=== PATIENT | female | born 1945 | race Caucasian/White ===

== ENCOUNTER 2021-07-18 09:33 | Inpatient (IN) | payer MEDICARE, MEDICAID ==
[~2021-07-18] VITALS: Ht 162.6 cm; Wt 78.0 kg
--- NOTE | 2021-07-18 09:52 | NUR ---
BIB DAUGHTER FOR GENERALIZED WEAKNESS, N/V, DIZZINESS, FEVER, AND CP SINCE 0800 LAST NIGHT. NEAR SYNCOPE WHILE IN THE WAITING ROOM. HC BREAST CANCER AND R SIDED MASTECTOMY. RECEIVED RADIATION THERAPY, STATES CP IS AROUND SITE OF RADIATION. AAOX4, BREATHING EVEN AND UNLABORED, [employer]IONICS ELECTRONICS TECHNICIAN STRENGTH 5/5, NO LEG OR ARM DRIFT. NO FACIAL DROOP. ON MONITOR, BP 126/84. TEMP 100.0 F.
--- NOTE | 2021-07-18 10:35 | NUR ---
LAB AT BEDSIDE
[2021-07-18 10:52] LABS: BASOPHILS % (AUTO) 0.2 % (0.0-2.0); EOSINOPHILS % (AUTO) 0.4 % (0.0-6.0); HEMATOCRIT 33 % (33-45); HEMOGLOBIN 11.2 g/dL (11.5-14.8); LYMPHOCYTES # (AUTO) 0.7 K/uL (0.8-4.8); LYMPHOCYTES % (AUTO) 20.5 % (20.0-44.0); MEAN CORPUSCULAR HGB CONC 34 g/dl (31.0-36.0); MEAN CORPUSCULAR VOLUME 90 fL (82-100); MONOCYTES # (AUTO) 0.4 K/uL (0.1-1.30); MONOCYTES % (AUTO) 11.9 % (2.0-12.0); NEUTROPHILS # (AUTO) 2.4 K/uL (1.8-8.9); RED BLOOD CELL COUNT(AUTO) 3.63 MIL/uL (4.0-5.2); WHITE BLOOD COUNT (AUTO) 3.6 K/uL (4.3-11.0)
[2021-07-18] MEDS ORDERED: IV NS 0.9% 1,000 ML BAG IV ONE (11:30)
[2021-07-18] MEDS ORDERED: VANCOMYCIN 1.5 GM in IV D5W 500 ML IV SCH (11:30)
--- NOTE | 2021-07-18 11:30 | NUR ---
URINE SAMPLE OBTAINED AND SENT TO LAB
--- NOTE | 2021-07-18 11:38 | NUR ---
LAB AT BEDSIDE. BLOOD CULTURES OBTAINED
[2021-07-18 12:01] LABS: BILIRUBIN,URINE NEGATIVE (NEGATIVE); COLOR,URINE YELLOW (YELLOW); LEUKOCYTE ESTERASE ,URINE NEGATIVE (NEGATIVE); NITRITE, URINE NEGATIVE (NEGATIVE); PROTEIN,URINE NEGATIVE (NEGATIVE); UGLUCOSE NEGATIVE (NEGATIVE); UROBILINOGEN,URINE 0.2 EU/dL (0.2)
[2021-07-18 12:02] LABS: CALCIUM, SERUM 8.8 mg/dL (8.5-10.1); CARBON DIOXIDE 22 mmol/L (21-32); CHLORIDE 99 mmol/L (98-107); CREATININE 1.3 mg/dL (0.6-1.3); GLUCOSE 120 mg/dL (74-106); POTASSIUM 3.4 mmol/L (3.5-5.1); SODIUM SERUM 132 mmol/L (136-145); UREA NITROGEN, BLOOD 22 mg/dL (7-18)
[2021-07-18 12:06] LABS: ALANINE AMINOTRANSFERASE 21 U/L (12-78); ALBUMIN 3.1 g/dL (3.4-5.0); ALKALINE PHOSPHATASE 39 U/L (46-116); ASPARTATE AMINOTRANSFERASE 19 U/L (15-37); BILIRUBIN,DIRECT 0.3 mg/dL (0.0-0.2); BILIRUBIN,TOTAL 1.1 mg/dL (0.2-1.0); TOTAL PROTEIN, SERUM 6.3 g/dL (6.4-8.2)
[2021-07-18 12:10] LABS: PLATELET COUNT (AUTO) 101 K/uL (150-450)
[2021-07-18] MEDS ORDERED: IOHEXOL-350 100 ML VIAL IV ONE (12:12)
[2021-07-18] MEDS ORDERED: IV NS 0.9% 250 ML IV ONE (12:13)
[2021-07-18 12:15] LABS: BAND % (MANUAL) 5 % (0.0-5.0); LYMPHOCYTES % (MANUAL) 24 % (16-48); MONOCYTES % (MANUAL) 9 % (0-11.0); NEUTROPHILS % (MANUAL) 62 (42-76)
[2021-07-18 12:35] LABS: BACTERIA,URINE None seen /HPF (None Seen); RBC,URINE 0-2 /HPF (0-2); SQUAMOUS EPITHELIAL CELL,UR Few /HPF (None Seen); WBC,URINE 0-2 /HPF (0-3)
--- NOTE | 2021-07-18 12:47 | NUR ---
PT LAYING IN BED COMFORTABLY. FAMILY AND FRIEND AT BEDSIDE. VS STABLE
[2021-07-18] MEDS ORDERED: CEFEPIME 2 GM in IV D5W 100 ML IV SCH (13:00)
[2021-07-18] MEDS ORDERED: CHOL100043 PO (13:52)
[2021-07-18] MEDS ORDERED: PALB100T PO (13:52)
[2021-07-18] MEDS ORDERED: VALS160T29 PO (13:52)
[2021-07-18] MEDS ORDERED: LETR2.5T8 PO (13:52)
[2021-07-18] MEDS ORDERED: ZINC50TA69 PO (13:52)
[2021-07-18] MEDS ORDERED: ATOR10TA PO (13:52)
[2021-07-18] MEDS ORDERED: METO50TA16 PO (13:52)
--- NOTE | 2021-07-18 16:10 | NUR ---
covid sample obtained and sent to lab
[2021-07-18] MEDS: METOPROLOL TARTRATE 50 MG TABLET PO SCH (17:00)
--- NOTE | 2021-07-18 17:22 | NUR ---
ROOM 317-1
--- NOTE | 2021-07-18 17:35 | NUR ---
REPORT GIVEN TO SISI REED
--- NOTE | 2021-07-18 18:00 | NUR ---
MEAT DRESSER ADMITTING NOTES RECEIVED ADMISSION FROM ER. PATIENT MEDICALLY STABLE, ON ROOM AIR, A/O X4, FARSI SPEAKING. TELE MONITOR WITH A READING OF NSR [address]; BED IN LOW POSITION AND LOCKED, RAILS UP X2, CALL LIGHT WITHIN REACH. WILL CONTINUE TO MONITOR PATIENT.
--- NOTE | 2021-07-18 18:00 | NUR ---
PT TRANSFERRED TO FLOOR FOLLOWING ACLS PROTOCOL WITH RN AND TRANSPORTER. VS REMAINED STABLE.
[2021-07-18] MEDS: ATORVASTATIN 10 MG TABLET PO SCH (18:43)
--- NOTE | 2021-07-18 19:23 | NUR ---
SCHOOL MANAGER CLOSING NOTES PATIENT RESTING IN BED IN NO DISTRESS. SAFETY PRECAUTIONS IN PLACE. WILL ENDORSE TO COFFEE HOST NURSE FOR JOSE ANGEL.
--- NOTE | 2021-07-18 19:28 | NUR ---
TRIAL EXAMINER OPENING NOTES PATIENT RESTING IN BED IN NO DISTRESS. SAFETY PRECAUTIONS IN PLACE. NO PAIN REPORTED. WILL CONTINUE TO MONITOR.
[2021-07-18 20:00] VITALS: BP 133/52
[2021-07-18] MEDS ORDERED: CITA10TA9 PO (20:00)
[2021-07-18] MEDS ORDERED: LORA-259 PO (20:00)
--- NOTE | 2021-07-18 22:49 | NUR ---
IGNITION EXPERT NOTES PER DR CARPENTER REDRAW OF LACTIC ACID IN THE AM ID LACTIC ACID ABOVE 2.0 OKAY TO START PT ON NS @ 100ML/HR PRN. WILL CONTINUE TO MONITOR.
[2021-07-19] VITALS: BP 120/65
--- NOTE | 2021-07-19 00:43 | NUR ---
WELDER PIPE MAKING NOTES PT REPORTING AN EPISODE OF DIARRHEA EARLIER TODAY AROUND NOON. ASKED PT TO CALL ME NEXT TIME SHE HAS A BOWEL MOMENT TO ASSESS. PT CALLED ME I ASSESSED PT HAS VERY MINIMAL OUTPUT OF STOOL TO CONSIDER DIARRHEA WILL CONTINUE TO MONITOR PT.
[2021-07-19 04:00] VITALS: BP 134/64
--- NOTE | 2021-07-19 06:43 | NUR ---
PASSENGER RELATIONS REPRESENTATIVE NOTES PT IN BED RESTING EASILY. NO PAIN NOTED. NO RESPIRATORY DISTRESS. PT ABLE TO MAKE NEEDS KNOW. PT HAD NO MORE REPORTS OF POSSIBLE DIARRHEA DURING THE SHIFT. ALL NEEDS MET. CALL LIGHT WITHIN REACH. TABLE WITHIN REACH. BILATERAL SIDE RAILS UP FOR SAFETY. PT REMINDED TO USE THE CALL LIGHT IF SHE HAS ANY NEEDS. WILL ENDORSE CARE TO DAY SHIFT NURSE.
--- NOTE | 2021-07-19 07:26 | NUR ---
BEVERAGE MANAGER OPENING NOTES RECEIVED PATIENT IN BED RESTING . DAUGHTER AT HER BED SIDE. NO PAIN NOTED. NO RESPIRATORY DISTRESS NOTED. PATIENT ABLE TO MAKE NEEDS KNOW. THE LAST TIME DAUGHTER REPORTED DIARRHEA WAS 1AM. TELE MONITOR READS SR. BED LOCKED IN LOWEST POSITION. TABLE WITHIN REACH. BILATERAL SIDE RAILS UP FOR SAFETY. CALL LIGHT IN REACH. WILL CONTINUE TO MONITOR THE PATIENT.
[2021-07-19 08:00] VITALS: BP 119/68
[2021-07-19] MEDS: METOPROLOL TARTRATE 50 MG TABLET PO SCH ×2 (08:35→16:51)
[2021-07-19] MEDS ORDERED: LETROZOLE 2.5 MG TABLET PO SCH ×2 (09:00)
[2021-07-19 10:07] LABS: CALCIUM, SERUM 8.9 mg/dL (8.5-10.1); CREATININE 1.1 mg/dL (0.6-1.3); POTASSIUM 3.3 mmol/L (3.5-5.1)
[2021-07-19] MEDS: LETROZOLE 2.5 MG TABLET PO SCH (12:26)
[2021-07-19] MEDS: VANCOMYCIN 1 GM in IV D5W 250 ML IV SCH (12:44)
[2021-07-19] MEDS: GUAIFENESIN/CODEINE 10 ML UDC PO PRN ×2 (13:12→20:47)
[2021-07-19] MEDS ORDERED: POTASSIUM CHLORIDE 20 MEQ TAB.PRT.SR PO ONE (14:00)
[2021-07-19] MEDS: CEFTRIAXONE 1 G in IV D5W 50 ML IV SCH (14:19)
[2021-07-19 16:05] VITALS: BP 144/92
[2021-07-19] MEDS: ATORVASTATIN 10 MG TABLET PO SCH (17:07)
--- NOTE | 2021-07-19 18:45 | NUR ---
CENTRALIZED TRAFFIC CONTROL OPERATOR CLOSING NOTES PATIENT IN BED RESTING . 2 DAUGHTERS AT HER BED SIDE. NO PAIN NOTED. NO RESPIRATORY DISTRESS NOTED. PATIENT ABLE TO MAKE NEEDS KNOWN IN FARSI LANGUAGE. ON TELE MONITOR READS SR. ALL DUE MEDICATIONS GIVEN ORDERED. BED LOCKED IN LOWEST POSITION. TABLE AND CALL LIGHT WITHIN REACH. BILATERAL SIDE RAILS UP FOR SAFETY. WILL ENDORSE FOR JOSE ANGEL.
--- NOTE | 2021-07-19 19:30 | NUR ---
JIG MILL OPERATOR OPENING NOTES RECEIVED PATIENT LYING IN BED, HOB ELEVATED. 2 VISITORS PRESENT IN ROOM. PATIENT A/O X4, FARSI SPEAKING. DAUGHTER TRANSLATES. NO APPARENT DISTRESS NOTED. HAS LEFT FOREARM IV ACCESS #20G AND LEFT HAND IV ACCESS #20G. SALINE LOCK, INTACT AND PATENT. NO C/O PAIN OF THIS TIME. RIGHT BREAST REDNESS AND SWELLING NOTED. SAFETY MEASURES IN PLACE. WILL CONTINUE PLAN OF CARE.
[2021-07-19 20:00] VITALS: BP 127/73
--- NOTE | 2021-07-19 20:50 | NUR ---
MANUFACTURING PROJECT ENGINEER NOTES PATIENT IS COUGHING, ASKED FOR PRN COUGH SYRUP. GAVE ROBITUSSIN 5ML. TOLERATED WELL.
[2021-07-20] VITALS: BP 128/59
[2021-07-20 04:00] VITALS: BP 120/66
[2021-07-20 06:42] LABS: CALCIUM, SERUM 8.8 mg/dL (8.5-10.1); CREATININE 0.9 mg/dL (0.6-1.3); POTASSIUM 3.8 mmol/L (3.5-5.1)
--- NOTE | 2021-07-20 06:50 | NUR ---
HEALTH SAFETY ENGINEER CLOSING NOTES PATIENT LYING IN BED, EYES CLOSED. 1 DAUGHTER STAYED AT BEDSIDE. PATIENT A/O X4. STABLE ON ROOM AIR. VS WNL. NO SOB OR NOTED. NO C/O PAIN OR DISCOMFORT AT THIS TIME. HAS LEFT FOREARM IV ACCESS #20G AND LEFT HAND IV ACCESS #20G. SALINE LOCK, INTACT AND PATENT. ALL NEEDS ATTENDED. KEPT DRY AND COMFORTABLE. SAFETY MEASURES IN PLACE: BED LOW AND LOCKED, SIDE RAILS UP X2, CALL LIGHT WITHIN REACH.
--- NOTE | 2021-07-20 07:47 | NUR ---
RN OPENING NOTES Patient seen comfortably lying in bed, no SOB, no apparent distress noted, breathing even and unlabored, denies any pain or discomfort at this time, no grimacing. Call light left within reach, safety precautions in place, brakes locked, side rails up X 2, will monitor closely for any changes.
[2021-07-20 08:00] VITALS: BP 127/68
[2021-07-20] MEDS: METOPROLOL TARTRATE 50 MG TABLET PO SCH ×3 (08:39→17:42)
[2021-07-20] MEDS: LETROZOLE 2.5 MG TABLET PO SCH (08:39)
--- NOTE | 2021-07-20 11:37 | NUR ---
WOUND CARE CONSULT: PT PRESENTS WITH RT BREAST WOUND, PRESENT ON ADMISSION. DR MI NOTIFIED OF SURGICAL CONSULT. RECOMMENDATIONS MADE FOR WOUND CARE AND SKIN PROTECTION. CURRENT SYLVIA SCORE IS 20. MD IN AGREEMENT WITH PLAN OF CARE.
[2021-07-20] MEDS: VANCOMYCIN 1 GM in IV D5W 250 ML IV SCH (12:25)
[2021-07-20] MEDS: CEFTRIAXONE 1 G in IV D5W 50 ML IV SCH (14:49)
[2021-07-20] MEDS: ATORVASTATIN 10 MG TABLET PO SCH (17:42)
--- NOTE | 2021-07-20 18:31 | NUR ---
RN CLOSING NOTES Patient lying in bed, no apparent distress noted, no shortness of breath, breathing even and unlabored, remained afebrile, no grimacing, denies any pain or discomfort, no dizziness, no palpitation, no chest pain. Patient has a IV peripheral line on left hand, and is getting IV ATB, (Vancomycin and Rocephin) infusing well, no s/s of infiltration, no redness, no swelling, no bleeding noted at this time. All needs anticipated, kept clean and dry, patient turned and repositioned frequently, aspiration precautions rendered, safety precautions in place, frequent visual checks rendered, brakes locked, side rails up X 2, call light left within reach, will endorse to next shift for continuity of care.
--- NOTE | 2021-07-20 18:35 | NUR ---
Patient's IV peripheral line on left hand and left forearm both IV lines noted with redness around area, no swelling, patient complained of discomfort when IV lines are flushed. Attempted to insert IV line on left antecubital, backflow of blood noted on IV catheter but stopped, per daughter "it looks like she's a hard stick, we can try to insert tomorrow am". Family preferred not to have midline insertion for patient for "patient might go home tomorrow", daughter added, explained advantages and benefits of having midline thrice, still family strongly refused. Hospitalist made aware of the situation awaiting for response, no apparent distress noted with patient, situation endorsed to incoming nurse.
--- NOTE | 2021-07-20 19:30 | NUR ---
RN OPENING NOTE PATIENT IN BED, AWAKE. PATIENT IS FARSI SPEAKING, A/O X 4. DAUGHTER MARCELINO AT BEDSIDE. PATIENT IS ON RA, TOLERATING WELL NOT IN ANY APPARENT DISTRESS. PATIENT DOES NOT HAVE ANY IV ACCESS AT THIS TIME, PER JANES REED, WILL INSERT IN AM, FAMILY DOES NOT WANT PATIENT TO BE POKED AGAIN TONIGHT. PATIENT HAS MILD PAIN ON R BREAST, DOES NOT WANT PAIN MEDICATION. TELE MONITOR READS SR 70 BPM. SAFETY MEASURES IN PLACE: BED LOCKED AND IN LOWEST POSITION, CALL LIGHT WITHIN REACH, SIDE RAILS UP. WILL MONITOR PATIENT CLOSELY.
[2021-07-20 20:00] VITALS: BP 121/71
[2021-07-21] VITALS: BP 133/73
--- NOTE | 2021-07-21 03:50 | NUR ---
RN NOTE MD NOTIFIED RE PATIENT VERBALIZING MILD HEADACHE. MD ORDERED TYLENOL 650 MG Q6HR PRN. TORB AND CARRIED OUT.
[2021-07-21] MEDS: ACETAMINOPHEN 325 MG TABLET PO PRN ×2 (03:58→17:21)
--- NOTE | 2021-07-21 03:58 | NUR ---
RN NOTE PATIENT ONLY TOOK 1 TABLET OF TYLENOL (325 MG) AND REFUSES THE OTHER TABLET.
[2021-07-21 04:00] VITALS: BP 132/67
--- NOTE | 2021-07-21 06:39 | NUR ---
RN CLOSING NOTE PATIENT IN BED, ASLEEP, EASILY AWAKENED. PATIENT IS FARSI SPEAKING, A/O X 4. DAUGHTER MARCELINO AT BEDSIDE. PATIENT IS ON RA, TOLERATING WELL NOT IN ANY APPARENT DISTRESS. PATIENT DOES NOT HAVE ANY IV ACCESS AT THIS TIME. DRESSING ON R BREAST C/D/I. TELE MONITOR READS SR 73 BPM. SAFETY MEASURES IN PL[address]: BED LOCKED AND IN LOWEST POSITION, CALL LIGHT WITHIN REACH, SIDE RAILS UP. ALL NEEDS MET AND ATTENDED. ALL ORDERS CARRIED OUT. WILL ENDORSE TO DAY SHIFT NURSE FOR JOSE ANGEL.
[2021-07-21 06:50] LABS: ALANINE AMINOTRANSFERASE 28 U/L (12-78); ALBUMIN 2.4 g/dL (3.4-5.0); ALKALINE PHOSPHATASE 43 U/L (46-116); ASPARTATE AMINOTRANSFERASE 17 U/L (15-37); BILIRUBIN,TOTAL 0.4 mg/dL (0.2-1.0); CARBON DIOXIDE 25 mmol/L (21-32); CHLORIDE 106 mmol/L (98-107); CREATININE 0.9 mg/dL (0.6-1.3); GLUCOSE 98 mg/dL (74-106); MAGNESIUM 1.8 mg/dL (1.8-2.4); PHOSPHORUS 3.9 mg/dL (2.5-4.9); POTASSIUM 3.8 mmol/L (3.5-5.1); SODIUM SERUM 139 mmol/L (136-145); TOTAL PROTEIN, SERUM 5.6 g/dL (6.4-8.2); UREA NITROGEN, BLOOD 10 mg/dL (7-18)
[2021-07-21 07:16] LABS: BASOPHILS % (AUTO) 1.4 % (0.0-2.0); EOSINOPHILS % (AUTO) 1.1 % (0.0-6.0); HEMATOCRIT 28 % (33-45); HEMOGLOBIN 9.7 g/dL (11.5-14.8); LYMPHOCYTES # (AUTO) 0.8 K/uL (0.8-4.8); LYMPHOCYTES % (AUTO) 25.9 % (20.0-44.0); MEAN CORPUSCULAR HGB CONC 35 g/dl (31.0-36.0); MEAN CORPUSCULAR VOLUME 90 fL (82-100); MONOCYTES # (AUTO) 0.5 K/uL (0.1-1.30); MONOCYTES % (AUTO) 17.3 % (2.0-12.0); NEUTROPHILS # (AUTO) 1.7 K/uL (1.8-8.9); NEUTROPHILS % (AUTO) 54.3 % (43.0-81.0); PLATELET COUNT (AUTO) 153 K/uL (150-450); RED BLOOD CELL COUNT(AUTO) 3.13 MIL/uL (4.0-5.2); WHITE BLOOD COUNT (AUTO) 3.2 K/uL (4.3-11.0)
--- NOTE | 2021-07-21 07:31 | NUR ---
ms rn received on bed, awake,alert,oriented x4,not in any form of distress, farsi speaking w/ daughter at bedside, dressing to right breast dry and intact, denies pain at this time, will monitor patient.
[2021-07-21] MEDS: METOPROLOL TARTRATE 50 MG TABLET PO SCH ×2 (08:44→17:31)
[2021-07-21] MEDS: LETROZOLE 2.5 MG TABLET PO SCH (08:44)
--- NOTE | 2021-07-21 09:00 | NUR ---
ms mehta breakfast served,due meds given,tolerated well.
[2021-07-21] MEDS ORDERED: CEPH500C2 PO (10:38)
[2021-07-21] MEDS: VANCOMYCIN 1 GM in IV D5W 250 ML IV SCH (12:41)
--- NOTE | 2021-07-21 13:00 | NUR ---
ms rn was seen by maricel, change dressing at this time.
[2021-07-21 13:29] LABS: LYMPHOCYTES % (MANUAL) 28 % (16-48); MONOCYTES % (MANUAL) 18 % (0-11.0); NEUTROPHILS % (MANUAL) 52 (42-76)
[2021-07-21] MEDS: CEFTRIAXONE 1 G in IV D5W 50 ML IV SCH (13:40)
--- NOTE | 2021-07-21 14:30 | NUR ---
ms rn iv atb done, ready to be discharge home, waiting for daughter Kush.
--- NOTE | 2021-07-21 17:00 | NUR ---
ms rn due meds given,tolerated well. patient refused to take picture of right breast wound due to just changed dressing by dolly.denies pain at this time.
--- NOTE | 2021-07-21 17:20 | NUR ---
ms rn on bed, no distress noted.
[2021-07-21 17:31] VITALS: BP 140/70
[2021-07-21] MEDS: ATORVASTATIN 10 MG TABLET PO SCH (17:31)
--- NOTE | 2021-07-21 17:56 | NUR ---
ms rn went home accompanied by daughter,all needs attended.
== END 2021-07-21 18:09 | disposition home or self-care (01) | DRG 721 ==
LOC: ER 09:33 → TRANSITION 15:43 → TELE 17:30
DX: T81.41XA Infection following a procedure, superficial incisional surgical site, initial encounter (principal); D61.810 Antineoplastic chemotherapy induced pancytopenia; E87.1 Hypo-osmolality and hyponatremia; E88.09 Other disorders of plasma-protein metabolism, not elsewhere classified; T81.31XA Disruption of external operation (surgical) wound, not elsewhere classified, initial encounter; E87.6 Hypokalemia; I10 Essential (primary) hypertension; Z20.822 Contact with and (suspected) exposure to COVID-19; E78.5 Hyperlipidemia, unspecified; Z85.3 Personal history of malignant neoplasm of breast; Z90.11 Acquired absence of right breast and nipple; Z98.82 Breast implant status; Z92.3 Personal history of irradiation; Y83.8 Other surgical procedures as the cause of abnormal reaction of the patient, or of later complication, without mention of misadventure at the time of the procedure; Y92.009 Unspecified place in unspecified non-institutional (private) residence as the place of occurrence of the external cause; T45.1X5A Adverse effect of antineoplastic and immunosuppressive drugs, initial encounter; L03.313 Cellulitis of chest wall; Z79.899 Other long term (current) drug therapy
CPT/HCPCS: 36415; 70450-TC; 71045-TC; 80048-TC; 80053-TC; 80076-TC; 80202-TC; 81001; 82962-TC; 83605-TC; 83735-TC; 84100-TC; 84484-TC; 85025-TC; 87040-TC; 87081-TC; A6253; A6403; G0378; J0692; J0696; J3370; J7030; J7040; J7050; J7060; Q9967

== ENCOUNTER 2024-07-30 06:15 | Inpatient (IN) | payer MEDICARE, OTHER ==
[~2024-07-30] VITALS: Ht 160 cm; Wt 74.4 kg
[~2024-07-30 06:15] MED LIST: ATOR10TA PO; CEPH500C2 PO; CHOL100043 PO; CITA10TA9 PO; LETR2.5T8 PO; LORA-259 PO; METO50TA16 PO; PALB100T PO; VALS160T29 PO; ZINC50TA69 PO
[2024-07-30] MEDS ORDERED: ONDANSETRON HCL/PF 4 MG/2 ML VIAL ONE (06:54)
[2024-07-30] MEDS: IV NS 0.9% 1,000 ML BAG IV ONE (07:08)
[2024-07-30] MEDS: ONDANSETRON HCL/PF 4 MG/2 ML VIAL IVP ONE (07:08)
[2024-07-30 07:29] LABS: BASOPHILS % (AUTO) 0.1 % (0.0-2.0); EOSINOPHILS # (AUTO) 0.1 K/uL (0.0-0.7); EOSINOPHILS % (AUTO) 1.1 % (0.0-6.0); HEMATOCRIT 40 % (33-45); HEMOGLOBIN 13.4 g/dL (11.5-14.8); LYMPHOCYTES # (AUTO) 0.4 K/uL (0.8-4.8); LYMPHOCYTES % (AUTO) 4.5 % (20.0-44.0); MEAN CORPUSCULAR HEMOGLOBIN 30 PG (26.0-33.0); MEAN CORPUSCULAR HGB CONC 34 g/dl (31.0-36.0); MEAN CORPUSCULAR VOLUME 89 fL (82-100); MONOCYTES # (AUTO) 0.3 K/uL (0.1-1.30); MONOCYTES % (AUTO) 3.2 % (2.0-12.0); NEUTROPHILS % (AUTO) 91.1 % (43.0-81.0); PLATELET COUNT (AUTO) 154 K/uL (150-450); RED BLOOD CELL COUNT(AUTO) 4.47 MIL/uL (4.0-5.2); RED CELL DISTRIBUTION WIDTH 13.9 % (11.5-15.0); WHITE BLOOD COUNT (AUTO) 8.8 K/uL (4.3-11.0)
[2024-07-30 08:03] LABS: ALANINE AMINOTRANSFERASE 23 U/L (12-78); ALBUMIN 3.4 g/dL (3.4-5.0); ALKALINE PHOSPHATASE 63 U/L (46-116); ASPARTATE AMINOTRANSFERASE 27 U/L (15-37); BILIRUBIN,DIRECT 0.2 mg/dL (0.0-0.2); BILIRUBIN,TOTAL 1.1 mg/dL (0.2-1.0); CALCIUM, SERUM 9.1 mg/dL (8.5-10.1); CARBON DIOXIDE 23 mmol/L (21-32); CHLORIDE 101 mmol/L (98-107); GLUCOSE 120 mg/dL (74-106); LIPASE 36 U/L (16-77); POTASSIUM 4.1 mmol/L (3.5-5.1); SODIUM SERUM 134 mmol/L (136-145); UREA NITROGEN, BLOOD 24 mg/dL (7-18)
[2024-07-30 08:33] LABS: APPEARANCE,URINE CLEAR (CLEAR); BILIRUBIN,URINE NEGATIVE (NEGATIVE); BLOOD, URINE NEGATIVE Ery/uL (NEGATIVE); COLOR,URINE YELLOW (YELLOW); KETONES,URINE NEGATIVE (NEGATIVE); LEUKOCYTE ESTERASE ,URINE NEGATIVE (NEGATIVE); NITRITE, URINE NEGATIVE (NEGATIVE); PROTEIN,URINE NEGATIVE (NEGATIVE); UGLUCOSE NEGATIVE (NEGATIVE); UROBILINOGEN,URINE 0.2 EU/dL (0.2)
[2024-07-30 08:54] LABS: NT-PRO BNP 381 pg/mL (0-125)
[2024-07-30] MEDS ORDERED: CYAN10006 PO (09:06)
[2024-07-30] MEDS ORDERED: VITA1TAB56 PO (09:07)
[2024-07-30] MEDS ORDERED: MORPHINE SULFATE INJ 2 MG/ML DISP.SYRIN IV PRN (09:30)
[2024-07-30] MEDS ORDERED: ACETAMINOPHEN 325 MG TABLET PO PRN (09:30)
[2024-07-30] MEDS ORDERED: ONDANSETRON HCL/PF 4 MG/2 ML VIAL IVP PRN (09:30)
[2024-07-30] MEDS: IV NS 0.9% 1,000 ML IV SCH (09:30)
[2024-07-30] MEDS ORDERED: DIPHENOXYLATE HCL/ATROP SULF 1 UDTAB TABLET PO PRN (12:00)
[2024-07-30] MEDS: METOPROLOL TARTRATE 50 MG TABLET PO SCH (12:09)
[2024-07-30] MEDS: LETROZOLE 2.5 MG TABLET PO SCH (12:09)
[2024-07-30] MEDS: CEFEPIME 2 GM in IV D5W 100 ML IV SCH (12:43)
[2024-07-30 16:00] VITALS: BP 110/62; TEMP 98.1; O2SAT 96
[2024-07-30] MEDS: LOSARTAN POTASSIUM 50 MG TABLET PO SCH (16:31)
[2024-07-30] MEDS: DOCUSATE SODIUM LIQ 100 MG/10 ML UDC PO SCH (16:32)
[2024-07-30 20:33] VITALS: BP 123/67; TEMP 98.4; O2SAT 95
[2024-07-30] MEDS: HEPARIN SODIUM, PORCINE 5000 UNITS/1 ML VIAL SQ SCH (21:10)
[2024-07-31 04:10] VITALS: BP 115/59; TEMP 98.4; O2SAT 98
[2024-07-31 07:52] LABS: BASOPHILS % (AUTO) 0.3 % (0.0-2.0); EOSINOPHILS % (AUTO) 1.1 % (0.0-6.0); HEMATOCRIT 36 % (33-45); HEMOGLOBIN 12.3 g/dL (11.5-14.8); LYMPHOCYTES % (AUTO) 21.5 % (20.0-44.0); MEAN CORPUSCULAR HEMOGLOBIN 30 PG (26.0-33.0); MEAN CORPUSCULAR HGB CONC 34 g/dl (31.0-36.0); MEAN CORPUSCULAR VOLUME 89 fL (82-100); MONOCYTES # (AUTO) 0.6 K/uL (0.1-1.30); MONOCYTES % (AUTO) 12.9 % (2.0-12.0); NEUTROPHILS # (AUTO) 2.9 K/uL (1.8-8.9); NEUTROPHILS % (AUTO) 64.2 % (43.0-81.0); PLATELET COUNT (AUTO) 141 K/uL (150-450); RED BLOOD CELL COUNT(AUTO) 4.05 MIL/uL (4.0-5.2); RED CELL DISTRIBUTION WIDTH 13.9 % (11.5-15.0); WHITE BLOOD COUNT (AUTO) 4.5 K/uL (4.3-11.0)
[2024-07-31 08:00] VITALS: BP 137/60; TEMP 98.2; O2SAT 97
[2024-07-31 08:03] VITALS: BP 137/60
[2024-07-31 08:04] LABS: BILIRUBIN,TOTAL 0.8 mg/dL (0.2-1.0); CALCIUM, SERUM 8.7 mg/dL (8.5-10.1); CREATININE 0.9 mg/dL (0.6-1.3); PHOSPHORUS 2.7 mg/dL (2.5-4.9); POTASSIUM 3.5 mmol/L (3.5-5.1); TOTAL PROTEIN, SERUM 6.3 g/dL (6.4-8.2)
[2024-07-31] MEDS: POLYETHYLENE GLYCOL 3350 17 GM POWD.PACK PO SCH (08:14)
[2024-07-31] MEDS ORDERED: AMOX-430 PO (10:27)
[2024-07-31] MEDS: DIPHENOXYLATE HCL/ATROP SULF 1 UDTAB TABLET PO SCH (10:41)
== END 2024-07-31 18:24 | disposition home or self-care (01) | DRG 372 ==
LOC: ER 06:36 → TELE1 10:33 → MEDSG1 13:29
PROVIDERS: ADMIT Internal Medicine; ATTEND Internal Medicine
DX: A04.9 Bacterial intestinal infection, unspecified (principal); E87.1 Hypo-osmolality and hyponatremia; I31.39 Other pericardial effusion (noninflammatory); Z90.11 Acquired absence of right breast and nipple; Z85.3 Personal history of malignant neoplasm of breast; Z85.51 Personal history of malignant neoplasm of bladder; I10 Essential (primary) hypertension
CPT/HCPCS: 36415; 71045-TC; 80048-TC; 80053-TC; 80076-TC; 83690-TC; 83735-TC; 83880; 84100-TC; 84484-TC; 85025-TC; 85378-TC; 85652-TC; 93307-TC; 97110-TC; 97116-TC; 97530-TC; 97535-TC; A4223; G0378; J0692; J1644; J2405; J7030; J7060